=== PATIENT | female | born 1965 | race Hispanic/Latino ===

== ENCOUNTER 2019-11-04 10:24 | Outpatient (CLI) | payer OTHER ==
--- NOTE | 2019-11-04 12:36 | XRay Report ---
BILATERAL HIPS 2 VIEWS WITH PELVIS INDICATION: LEFT ANKLE PAIN. COMPARISON: None. IMPRESSION: There is been previous internal fixation of the left femoral neck with 3 orthopedic scre ws, correlate with history. No acute fracture, joint malalignment or bone lesion is identified. There is normal articulation at both hips. Mild symmetric degenerative changes are noted at the SI joints. Borderline to mild osteopenia is suspected. LEFT ANKLE 2 VIEWS INDICATION: LEFT ANKLE PAIN. COMPARISON: None. IMPRESSION: No acute osseous or soft tissue abnormality. No significant DJD. Mild osteopenia. Signer Name: Keshav Corado Jr, MD Signed: 11/04/2019 12:32 PM Workstation Name: [id number]
== END 2019-11-04 10:25 | disposition home or self-care (01) ==
LOC: XRAY 10:24
PROVIDERS: ATTEND Internal Medicine
DX: M25.572 Pain in left ankle and joints of left foot (principal); M53.3 Sacrococcygeal disorders, not elsewhere classified
CPT/HCPCS: 73521